=== PATIENT | male | born 1940 | race Caucasian/White ===

== ENCOUNTER 2017-07-06 23:08 | Inpatient (IN) | payer OTHER, MEDICARE ==
[~2017-07-06] VITALS: Ht 190.5 cm; Wt 71.9 kg
[~2017-07-06 23:08] MED LIST: DIOV40TA PO; DIPH50TA PO; SULF1TAB47 PO
[2017-07-06 23:09] VITALS: BP 91/55; PULSE 64; RESP 16; TEMP 97.6; O2SAT 97
[2017-07-06 23:15] VITALS: O2SAT 97
[2017-07-06] MEDS ORDERED: SODIUM CHLOR 0.9% 1000 ML INJ 1,000 ML IV ONE (23:15)
--- NOTE | 2017-07-06 23:17 | PD ---
HPI Chief Complaint: General Weakness Time Seen by Provider: 23:11 Travel History International Travel<30 days: No Contact w/Intl Traveler<30days: No Traveled to known affect area: No History of Present Illness HPI 77-year-old male complains of generalized malaise and weakness. Patient started having coughing congestion about 5 days ago. Patient was given cefuroxime 500 mg by his physician. Patient states that he started having diarrhea prior to taking the antibiotic. Patient states that he had persistent diarrhea subsequently. Patient took [id number] Imodium with some relief of the diarrhea. Patient states that he has poor appetite for the past 5 days. Patient denies any headache. Patient denies any chest pain or shortness of breath. Patient denies abdominal pain. Patient denies any blood or mucus in the stool. Patient has history hypertension and on medication for that. Patient denies history diabetes or hyperlipidemia. Patient is a nonsmoker. Patient denies history of asthma or COPD. EMS was called this evening. Patient was found to be hypotensive. Blood pressure was found to be 60/40. Patient was given a normal saline solution 1.5 L on with the ED. Patient's blood pressure in the 90s upon arrival. PFSH Past Medical History Diminished Hearing: No Hypertension: Yes Social History Alcohol Use: No Tobacco Use: Yes (1 PPD) Substance Use: No Allergies-Medications (Allergen,Severity, Reaction): Coded Allergies: No Known Allergies (Verified Allergy, Unknown, 07/07/17) Reported Meds & Prescriptions Reported Meds & Active Scripts Active Reported Atorvastatin (Atorvastatin Calcium) 20 Mg Tab 20 Mg PO HS Carvedilol 12.5 Mg Tab 12.5 Mg PO BID Lisinopril 20 Mg Tab 20 Mg PO DAILY Cefuroxime (Cefuroxime Axetil) 500 Mg Tab 500 Mg PO BID Review of Systems General / Constitutional: No: Fever Eyes: No: Visual changes HENT: No: Headaches Cardiovascular: No: Chest Pain or Discomfort Respiratory: No: Shortness of Breath Gastrointestinal: Positive: Diarrhea, No: Abdominal Pain Genitourinary: No: Dysuria Musculoskeletal: No: Pain Skin: No Rash Neurologic: No: Weakness Psychiatric: No: Depression Endocrine: No: Polydipsia Hematologic/Lymphatic: No: Easy Bruising Physical Exam Narrative GENERAL: Well-nourished, well-developed patient. SKIN: Focused skin assessment warm/dry. HEAD: Normocephalic. EYES: No scleral icterus. No injection or drainage. NECK: Supple, trachea midline. No JVD or lymphadenopathy. CARDIOVASCULAR: Regular rate and rhythm without murmurs, gallops, or rubs. RESPIRATORY: Breath sounds equal bilaterally. No accessory muscle use. GASTROINTESTINAL: Abdomen soft, non-tender, nondistended. MUSCULOSKELETAL: No cyanosis, or edema. BACK: Nontender without obvious deformity. No CVA tenderness. Neurologic exam normal. Data Data Last Documented VS Vital Signs Date Time Temp Pulse Resp B/P (MAP) Pulse Ox O2 Delivery O2 Flow Rate FiO2 07/07/17 00:45 70 16 87/53 (64) 94 Room Air 07/06/17 23:09 97.6 Orders Orders Lactic Acid (07/06/17 23:11) Electrocardiogram (07/06/17 23:11) Complete Blood Count With Diff (07/06/17 23:11) Comprehensive Metabolic Panel (07/06/17 23:11) Creatine Kinase (Cpk) (07/06/17 23:11) Troponin I (07/06/17 23:11) B-Type Natriuretic Peptide (07/06/17 23:11) Prothrombin Time / Inr (Pt) (07/06/17 23:11) Act Partial Throm Time (Ptt) (07/06/17 23:11) Blood Culture (07/06/17 23:11) Urinalysis - C+S If Indicated (07/06/17 23:11) Magnesium (Mg) (07/06/17 23:11) Thyroid Stimulating Hormone (07/06/17 23:11) Phosphorus (Po4) (07/06/17 23:11) Enteric Path (Stool) (07/06/17 23:11) C Diff Toxin Pcr (07/06/17 23:11) Influenzae A/B Antigen (07/06/17 23:11) Chest, Single Ap (07/06/17 23:11) Iv Access Insert/Monitor (07/06/17 23:11) Ecg Monitoring (07/06/17 23:11) Oximetry (07/06/17 23:11) Sodium Chlor 0.9% 1000 Ml Inj (Ns 1000 M (07/06/17 23:15) Sodium Chlor 0.9% 1000 Ml Inj (Ns 1000 M (07/07/17 00:00) Norepinephrine-Dextrose Drip (Levophed-D (07/07/17 00:45) Terbutaline Inj (Brethine Inj) (07/07/17 00:45) Lactic Acid Sepsis Protocol (07/07/17 00:33) Vancomycin Inj (Vancomycin Inj) (07/07/17 01:15) Piperacil-Tazo 2.25 Gm Premix (Zosyn 2.2 (07/07/17 01:15) Labs Laboratory Tests Test 07/06/17 23:18 07/06/17 23:29 White Blood Count 12.2 TH/MM3 Red Blood Count 4.64 MIL/MM3 Hemoglobin 14.1 GM/DL Hematocrit 43.0 % Mean Corpuscular Volume 92.7 FL Mean Corpuscular Hemoglobin 30.4 PG Mean Corpuscular Hemoglobin Concent 32.8 % Red Cell Distribution Width 13.1 % Platelet Count 225 TH/MM3 Mean Platelet Volume 7.6 FL Neutrophils (%) (Auto) 85.1 % Lymphocytes (%) (Auto) 6.8 % Monocytes (%) (Auto) 7.9 % Eosinophils (%) (Auto) 0.0 % Basophils (%) (Auto) 0.2 % Neutrophils # (Auto) 10.4 TH/MM3 Lymphocytes # (Auto) 0.8 TH/MM3 Monocytes # (Auto) 1.0 TH/MM3 Eosinophils # (Auto) 0.0 TH/MM3 Basophils # (Auto) 0.0 TH/MM3 CBC Comment DIFF FINAL Differential Comment Prothrombin Time 12.0 SEC Prothromb Time International Ratio 1.2 RATIO Activated Partial Thromboplast Time 32.2 SEC Blood Urea Nitrogen 41 MG/DL Creatinine 4.31 MG/DL Random Glucose 106 MG/DL Total Protein 6.1 GM/DL Albumin 2.4 GM/DL Calcium Level 7.8 MG/DL Phosphorus Level 4.6 MG/DL Magnesium Level 2.1 MG/DL Alkaline Phosphatase 62 U/L Aspartate Amino Transf (AST/SGOT) 19 U/L Alanine Aminotransferase (ALT/SGPT) 18 U/L Total Bilirubin 0.3 MG/DL Sodium Level 138 MEQ/L Potassium Level 4.4 MEQ/L Chloride Level 106 MEQ/L Carbon Dioxide Level 23.4 MEQ/L Anion Gap 9 MEQ/L Estimat Glomerular Filtration Rate 13 ML/MIN Lactic Acid Level 1.4 mmol/L Total Creatine Kinase 106 U/L Troponin I LESS THAN 0.02 NG/ML B-Type Natriuretic Peptide 24 PG/ML Thyroid Stimulating Hormone 3rd Gen 1.470 uIU/ML Stool C. difficile Toxin (PCR) POSITIVE Stl C. difficile Toxin Epiderm 027 PRESUMPTIVE NEGATIVE MDM Medical Decision Making Medical Screen Exam Complete: Yes Emergency Medical Condition: Yes Interpretation(s) Last Impressions Chest X-Ray 07/06/17 2311 Signed Impressions: Service Date/Time: Thursday, July 06, 2017 23:25 - CONCLUSION: No acute cardiopulmonary abnormality is identified. There is mild atelectasis at the left lung base. Junaid Davis MD 1:14 AM. CBC WBC 12.2. 85 neutrophil. BUN 41. Creatinine 4.31. GFR 13. Lactic acid 1.4. Cardiac enzymes are normal. C. difficile PCR positive. Differential Diagnosis Differential diagnosis including gastroenteritis, dehydration, electrolyte imbalance, colitis, sepsis. Narrative Course 77-year-old male with poor appetite, diarrhea, hypotension. Patient was given 1.5 L normal saline solution by EMS. Normal saline solution 2 L IV bolus. Levophed IV started to keep MAP above 65. Vancomycin 1 g IV given. Zosyn 2.275 g IV given. Critical Care Narrative Aggregate critical care time was 60 minutes. Time to perform other separately billable procedures was not included in the critical care time. My time did not include minutes spent treating any other patients simultaneously or on activities that did not directly contribute to the patient's treatment. The services I provided to this patient were to treat and/or prevent clinically significant deterioration that could result in: I provided critical care services requiring my management, as noted below: Chart data review, documentation time, medication orders and management, vital sign assessments/reviewing monitor data, ordering and reviewing lab tests, ordering and interpreting/reviewing x-rays and diagnostic studies, care of the patient and discussion of the patient with the admitting physicians. Procedures Procedure Narrative CENTRAL VENOUS LINE: The site was prepped with Betadine and sterilely draped. It was infiltrated with 1% lidocaine plain. The deep vein was cannulated using normal Seldinger technique. A triple lumen central line was placed in the right femoral site and secured with simple interrupted suture. The site was sterilely dressed. The patient tolerated the procedure well. Diagnosis Primary Impression: Septic shock Additional Impressions: C. difficile colitis Acute kidney injury Admitting Information Admitting Physician Requests: Admit Tereso Otero MD Jul 06, 2017 23:17
[2017-07-06] MEDS ORDERED: CEFU1TAB20 PO (23:38)
[2017-07-06] MEDS ORDERED: LISI-515 PO (23:38)
[2017-07-06] MEDS ORDERED: ATOR20TA15 PO (23:38)
[2017-07-06] MEDS ORDERED: CARV12.52 PO (23:38)
[2017-07-06 23:40] VITALS: BP 82/48; PULSE 60; RESP 16; O2SAT 95
--- NOTE | 2017-07-06 23:41 | RADRPT ---
EXAM DATE/TIME: 07/06/2017 23:25 [facility] COMPARISON: No previous studies available for comparison. INDICATIONS : Shortness of breath. MEDICAL HISTORY : None. SURGICAL HISTORY : None. ENCOUNTER: Initial ACUITY: 1 day PAIN SCORE: 0/10 LOCATION: Bilateral chest FINDINGS: Portable AP view of the chest demonstrates a normal-sized cardiac silhouette. EKG lines overlie the p atient. Lungs are hyperexpanded. There is atelectasis at the left lung base. No pleural effusion, air space consolidation, or pneumothorax is visualized. The bones and soft tissues demonstrate no acute f inding. CONCLUSION: No acute cardiopulmonary abnormality is identified. There is mild atelectasis at the left lung base. Junaid Davis MD on July 06, 2017 at 23:39 Board Certified Radiologist. This report was verified electronically.
[2017-07-06 23:43] LABS: AUTOMATED NEUTROPHIL # 10.4 TH/MM3 (1.8-7.7); BASOPHIL % 0.2 % (0.0-2.0); HEMOGLOBIN 14.1 GM/DL (13.0-17.0); LYMPH % 6.8 % (9.0-44.0); LYMPHOCYTE # 0.8 TH/MM3 (1.0-4.8); MEAN CELL VOLUME 92.7 FL (80.0-100.0); MEAN CORPUSCULAR HEMOGLOBIN 30.4 PG (27.0-34.0); MEAN CORPUSCULAR HGB CONC 32.8 % (32.0-36.0); MEAN PLATELET VOLUME 7.6 FL (7.0-11.0); MONO % 7.9 % (0.0-8.0); NEUT % 85.1 % (16.0-70.0); PLATELET COUNT 225 TH/MM3 (150-450); RED BLOOD COUNT 4.64 MIL/MM3 (4.50-5.90); RED CELL DISTRIBUTION WIDTH 13.1 % (11.6-17.2); WHITE BLOOD COUNT 12.2 TH/MM3 (4.0-11.0)
[2017-07-06 23:56] LABS: INTERNATIONAL NORMALIZED RATIO 1.2 RATIO
[2017-07-06 23:58] VITALS: BP 71/44; PULSE 85; RESP 16; O2SAT 95
[2017-07-07] VITALS (18 sets, daily range): BP systolic 87–136; BP diastolic 50–65; PULSE 63–86; RESP 16–28; TEMP 97.9–100.7; O2SAT 93–99
[2017-07-07 00:10] LABS: ALBUMIN 2.4 GM/DL (3.4-5.0); AST (GOT) 19 U/L (15-37); BICARBONATE 23.4 MEQ/L (21.0-32.0); BLOOD UREA NITROGEN 41 MG/DL (7-18); CALCIUM 7.8 MG/DL (8.5-10.1); CHLORIDE 106 MEQ/L (98-107); CREATININE 4.31 MG/DL (0.60-1.30); GLOMERULAR FILTRATION RATE 13 ML/MIN (>89); GLUCOSE,RANDOM 106 MG/DL (74-106); MAGNESIUM 2.1 MG/DL (1.5-2.5); SODIUM (NA) 138 MEQ/L (136-145)
[2017-07-07 00:11] LABS: ALT (GPT) 18 U/L (12-78); PHOSPHORUS 4.6 MG/DL (2.5-4.9)
[2017-07-07 00:20] LABS: ALKALINE PHOSPHATASE 62 U/L (45-117); TOTAL BILIRUBIN ADULT 0.3 MG/DL (0.2-1.0); TOTAL PROTEIN 6.1 GM/DL (6.4-8.2); TROPONIN I LESS THAN 0.02 NG/ML (0.02-0.05)
[2017-07-07] MEDS ORDERED: NOREPINEPHRINE-DEXTROSE DRIP 250 ML IV PRN (00:45)
[2017-07-07] MEDS ORDERED: TERBUTALINE INJ 1 MG/ML AMP SQ PRN (00:45)
[2017-07-07] MEDS ORDERED: VANCOMYCIN INJ 1,000 MG in SODIUM CHLOR 0.9% 250 ML INJ 250 ML IV ONE (01:15)
[2017-07-07] MEDS ORDERED: PIPERACIL-TAZO 2.25 GM PREMIX 50 ML IV ONE (01:15)
[2017-07-07] MEDS ORDERED: SODIUM CHLOR 0.9% 1000 ML INJ 1,000 ML IV ONE ×3 (01:44)
[2017-07-07] MEDS ORDERED: SODIUM CHLOR 0.9% 1000 ML INJ 100 ML IV ONE (01:44)
[2017-07-07] MEDS ORDERED: MAGNESIUM HYDROXIDE SUSP 30 ML CUP PO PRN (01:45)
[2017-07-07] MEDS ORDERED: RESP: ALBUTEROL 2.5 MG/IPRATROPIUM 0.5 MG NEB (PRN) INH (01:45)
[2017-07-07] MEDS ORDERED: PIPERACIL-TAZO 4.5 GM PREMIX 100 ML IV SCH (01:45)
[2017-07-07] MEDS ORDERED: ACETAMINOPHEN 325 MG TAB PO PRN (01:45)
[2017-07-07] MEDS ORDERED: Vancomycin Consult Pharmacy 1 EA OTHER SCH (01:45)
[2017-07-07] MEDS ORDERED: CHLORHEXIDINE GLUCONATE 2 % 1 PACK (2 CLOTHS) TOP PRN (01:45)
[2017-07-07] MEDS ORDERED: BISACODYL 10 MG SUPP RECTAL PRN (01:45)
[2017-07-07] MEDS ORDERED: ONDANSETRON HCL 4 MG/2 ML VIAL IV PUSH PRN (01:45)
[2017-07-07] MEDS ORDERED: TEMAZEPAM 15 MG CAP PO PRN (01:45)
[2017-07-07] MEDS ORDERED: LACTULOSE SYRUP 20 GM/30 ML CUP PO PRN (01:45)
[2017-07-07] MEDS ORDERED: SODIUM CHLORIDE 0.9% FLUSH 10 ML FLUSH IV FLUSH PRN ×2 (01:45)
[2017-07-07] MEDS ORDERED: MISCELLANEOUS NURSING INFORMATION XX SCH (01:45)
[2017-07-07] MEDS ORDERED: SENNOSIDES 8.6 MG TAB PO PRN (01:45)
[2017-07-07] MEDS: VANCOMYCIN 500 MG VIAL (FOR ORAL USE ONLY) PO SCH ×5 (02:07→20:42)
[2017-07-07] MEDS: SODIUM CHLOR 0.9% 1000 ML INJ 1,000 ML IV SCH ×2 (03:26→14:03)
[2017-07-07] MEDS: HEPARIN SODIUM - SQ 10,000 UNITS/ML VIAL SQ SCH ×3 (04:00→20:41)
[2017-07-07] MEDS: CHLORHEXIDINE GLUCONATE 2 % 1 PACK (2 CLOTHS) TOP SCH (04:00)
--- NOTE | 2017-07-07 05:43 | HHI.HP ---
HPI Service Critical Care Medicine Primary Care Physician Becky Milian M.D. Admission Diagnosis septic shock. C. difficile colitis. Acute kidney injury. Diagnosis: Travel History International Travel<30 Days: No Contact w/Intl Traveler <30 Da: No Traveled to Known Affected Are: No History of Present Illness 77-year-old male presents complaining of generalized malaise and weakness. Patient started having coughing congestion about 5 days ago. Patient was given cefuroxime 500 mg by his physician. Patient states that he started having diarrhea prior to taking the antibiotic and has had persistent diarrhea subsequently. Patient took [id number] Imodium with some relief of the diarrhea but he remained having poor appetite for the past 5 days. He denies abdominal pain. EMS was called this evening and they found patient hypotensive with a blood pressure 60/40. Patient was given a normal saline solution 1.5 L on with the ED. his blood pressure in the emergency department was improved however declined again, requiring centerline placement by ED attending and an initiation off vasopressors treatment. Review of Systems Constitutional: COMPLAINS OF: Diaphoretic episodes, Fatigue, Fever, Change in appetite, DENIES: Weight gain, Weight loss, Chills, Dizziness, Night Sweats Endocrine: DENIES: Heat/cold intolerance, Polydipsia, Polyuria, Polyphagia Eyes: DENIES: Blurred vision, Diplopia, Eye inflammation, Eye pain, Vision loss , Photosensitivity, Double Vision Ears, nose, mouth, throat: DENIES: Tinnitus, Hearing loss, Vertigo, Nasal discharge, Oral lesions, Throat pain, Hoarseness, Ear Pain, Running Nose, Epistaxis, Sinus Pain, Toothache, Odynophagia Respiratory: DENIES: Apneas, Cough, Snoring, Wheezing, Hemoptysis, Sputum production, Shortness of breath Cardiovascular: DENIES: Chest pain, Palpitations, Syncope, Dyspnea on Exertion , PND, Lower Extremity Edema, Orthopnea, Claudication Gastrointestinal: COMPLAINS OF: Diarrhea, DENIES: Abdominal pain, Black stools , Bloody stools, Constipation, Nausea, Vomiting, Difficulty Swallowing, Anorexia Musculoskeletal: DENIES: Joint pain, Muscle aches, Stiffness, Joint Swelling, Back pain, Neck pain Integumentary: DENIES: Abnormal pigmentation, Nail changes, Pruritus, Rash Hematologic/lymphatic: DENIES: Bruising, Lymphadenopathy Immunologic/allergic: DENIES: Eczema, Urticaria Neurologic: DENIES: Abnormal gait, Headache, Localized weakness, Paresthesias, Seizures, Speech Problems, Tremor, Poor Balance Psychiatric: DENIES: Anxiety, Confusion, Mood changes, Depression, Hallucinations, Agitation, Suicidal Ideation, Homicidal Ideation, Delusions Past Family Social History Allergies: Coded Allergies: No Known Allergies (Verified Allergy, Unknown, 07/07/17) Past Medical History Hypertension Past Surgical History No significant Reported Medications Reported Meds & Active Scripts Active Reported Atorvastatin (Atorvastatin Calcium) 20 Mg Tab 20 Mg PO HS Carvedilol 12.5 Mg Tab 12.5 Mg PO BID Lisinopril 20 Mg Tab 20 Mg PO DAILY Cefuroxime (Cefuroxime Axetil) 500 Mg Tab 500 Mg PO BID Active Ordered Medications Current Medications Medications (Trade) Dose Ordered Sig/Zachary Route PRN Reason Start Time Stop Time Status Last Admin Dose Admin Norepinephrine Bitartrate 250 ml @ 7.5 mls/hr TITRATE PRN IV Blood pressure management 07/07/17 00:45 Terbutaline Sulfate (Brethine Inj) 1 mg UNSCH PRN SQ For Extravasation 07/07/17 00:45 Vancomycin HCl (VANCOMYCIN for oral use only) 125 mg QID PO 07/07/17 01:45 07/07/17 02:07 Atorvastatin Calcium (Lipitor) 20 mg HS PO 07/07/17 21:00 Sodium Chloride 1,000 ml @ 84 mls/hr [id number] IV 07/07/17 01:44 07/07/17 03:26 Acetaminophen (Tylenol) 650 mg Q6H PRN PO PAIN 1-5 AND/OR FEVER >101F 07/07/17 01:45 Famotidine (Pepcid Inj) 20 mg Q12HR IV PUSH 07/07/17 09:00 Ondansetron HCl (Zofran Inj) 4 mg Q6H PRN IV PUSH NAUSEA OR VOMITING 07/07/17 01:45 Temazepam (Restoril) 15 mg HS PRN PO INSOMNIA 07/07/17 01:45 Albuterol/ Ipratropium (Duoneb Neb) 1 ampule Q2HR NEB PRN INH WHEEZING 07/07/17 01:45 Heparin Sodium (Porcine) (Heparin Inj) 5,000 units Q8H SQ 07/07/17 04:00 Miscellaneous Information 1 [id number] XX 07/07/17 01:45 Chlorhexidine Gluconate (Chlorhexidine 2% Cloth) 3 pack Taper DAILY@04 TOP 07/07/17 04:00 07/03/18 03:59 Chlorhexidine Gluconate (Chlorhexidine 2% Cloth) 3 pack UNSCH PRN TOP HYGIENIC CARE 07/07/17 01:45 Senna/Docusate Sodium (Bhakti-Colace) 1 tab BID PO 07/07/17 09:00 Magnesium Hydroxide (Milk Of Magnesia Liq) 30 ml Q12H PRN PO Mild constipation 07/07/17 01:45 Sennosides (Senokot) 17.2 mg Q12H PRN PO Moderate constipation 07/07/17 01:45 Bisacodyl (Dulcolax Supp) 10 mg DAILY PRN RECTAL SEVERE CONSITIPATION 07/07/17 01:45 Lactulose (Lactulose Liq) 30 ml DAILY PRN PO SEVERE CONSITIPATION 07/07/17 01:45 Sodium Chloride (NS Flush) 2 ml UNSCH PRN IV FLUSH FLUSH AFTER USING IV ACCESS 07/07/17 01:45 Sodium Chloride (NS Flush) 2 ml BID IV FLUSH 07/07/17 09:00 Pharmacy Profile Note 0 ml @ 0 mls/hr UNSCH OTHER 07/07/17 01:45 Piperacillin Sod/ Tazobactam Sod 50 ml @ 100 mls/hr Q6H IV 07/07/17 08:00 Influenza Virus Vaccine (Flu (Quadrivalent) Vaccine Inj) 0.5 ml ONCE ONCE IM 07/08/17 09:00 07/08/17 09:01 Family History No family history significant of early coronary artery disease or malignancy Social History Smokes one pack per day Denies history of illicit drug or alcohol abuse Physical Exam Vital Signs Vital Signs Date Time Temp Pulse Resp B/P (MAP) Pulse Ox O2 Delivery O2 Flow Rate FiO2 07/07/17 04:49 07/07/17 04:24 63 16 112/59 (76) 97 Nasal Cannula 2.00 07/07/17 03:06 79 16 98/56 (70) 98 Nasal Cannula 2.00 07/07/17 02:51 73 16 93/52 (66) 97 Nasal Cannula 2.00 07/07/17 02:12 76 16 100/55 (70) 94 Room Air 07/07/17 01:19 65 16 88/52 (64) 94 Room Air 07/07/17 00:45 70 16 87/53 (64) 94 Room Air 07/07/17 00:15 72 16 100/54 (69) 99 Room Air 07/06/17 23:58 85 16 71/44 (53) 95 Room Air 07/06/17 23:40 60 16 82/48 (59) 95 Room Air 07/06/17 23:15 97 Room Air 07/06/17 23:12 16 07/06/17 23:09 97.6 64 16 91/55 (67) 97 Physical Exam GENERAL: Well-nourished, well-developed patient. SKIN: Warm and dry. HEAD: Normocephalic. EYES: No scleral icterus. No injection or drainage. NECK: Supple, trachea midline. No JVD or lymphadenopathy. CARDIOVASCULAR: Regular rate and rhythm without murmurs, gallops, or rubs. RESPIRATORY: Breath sounds equal bilaterally. No accessory muscle use. GASTROINTESTINAL: Abdomen soft, non-tender, nondistended. MUSCULOSKELETAL: No cyanosis, or edema. BACK: Nontender without obvious deformity. NEURO EXAM: GCS: 15 Mental Status: The patient is alert and oriented to person, place, and time with normal speech. Laboratory Laboratory Tests Test 07/06/17 23:18 07/06/17 23:29 07/07/17 02:18 07/07/17 04:50 White Blood Count 12.2 Red Blood Count 4.64 Hemoglobin 14.1 Hematocrit 43.0 Mean Corpuscular Volume 92.7 Mean Corpuscular Hemoglobin 30.4 Mean Corpuscular Hemoglobin Concent 32.8 Red Cell Distribution Width 13.1 Platelet Count 225 Mean Platelet Volume 7.6 Neutrophils (%) (Auto) 85.1 Lymphocytes (%) (Auto) 6.8 Monocytes (%) (Auto) 7.9 Eosinophils (%) (Auto) 0.0 Basophils (%) (Auto) 0.2 Neutrophils # (Auto) 10.4 Lymphocytes # (Auto) 0.8 Monocytes # (Auto) 1.0 Eosinophils # (Auto) 0.0 Basophils # (Auto) 0.0 CBC Comment DIFF FINAL Differential Comment Prothrombin Time 12.0 Prothromb Time International Ratio 1.2 Activated Partial Thromboplast Time 32.2 Blood Urea Nitrogen 41 Creatinine 4.31 Random Glucose 106 Total Protein 6.1 Albumin 2.4 Calcium Level 7.8 Phosphorus Level 4.6 Magnesium Level 2.1 Alkaline Phosphatase 62 Aspartate Amino Transf (AST/SGOT) 19 Alanine Aminotransferase (ALT/SGPT) 18 Total Bilirubin 0.3 Sodium Level 138 Potassium Level 4.4 Chloride Level 106 Carbon Dioxide Level 23.4 Anion Gap 9 Estimat Glomerular Filtration Rate 13 Lactic Acid Level 1.4 1.0 Total Creatine Kinase 106 Troponin I LESS THAN 0.02 B-Type Natriuretic Peptide 24 Thyroid Stimulating Hormone 3rd Gen 1.470 Stool C. difficile Toxin (PCR) POSITIVE Stl C. difficile Toxin Epiderm 027 PRESUMPTIVE NEGATIVE Test 07/07/17 05:12 Lactic Acid Level 1.1 Date/Time Source Procedure Growth Status 07/06/17 23:18 Blood Peripheral Aerobic Blood Culture Pending Received 07/06/17 23:18 Blood Peripheral Anaerobic Blood Culture Pending Received 07/06/17 23:29 Stool Stool Pending Received 07/06/17 23:32 Nasal Washing Influenza Types A,B Antigen (JOSEPH) - Final NEGATIVE FOR FLU A AND B ANTIGEN.... Complete Result Diagram: 07/06/178 07/06/178 Imaging Last 24 hours Impressions Chest X-Ray 07/06/171 Signed Impressions: Service Date/Time: Thursday, July 06, 2017 23:25 - CONCLUSION: No acute cardiopulmonary abnormality is identified. There is mild atelectasis at the left lung base. Junaid Davis MD Septic Shock Reassessment Septic shock perfusion: reassessment completed Caprini VTE Risk Assessment Caprini VTE Risk Assessment: Mod/High Risk (score >= 2) Caprini Risk Assessment Model Point Value = 1 Point Value = 2 Point Value = 3 Point Value = 5 Age 41-60 Minor surgery BMI > 25 kg/m2 Swollen legs Varicose veins or History of unexplained or recurrent spontaneous Oral contraceptives or hormone replacement Sepsis (< 1 month) Serious lung disease, including pneumonia (< 1 month) Abnormal pulmonary function Acute myocardial infarction Congestive heart failure (< 1 month) History of inflammatory bowel disease Medical patient at bed rest Age 61-74 Arthroscopic surgery Major open surgery (> 45 min) Laparoscopic surgery (> 45 min) Malignancy Confined to bed (> 72 hours) Immobilizing plaster cast Central venous access Age >= 75 History of VTE Family history of VTE Factor V Leiden Prothrombin [id number] Lupus anticoagulant Anticardiolipin antibodies Elevated serum homocysteine Heparin-induced thrombocytopenia Other congenital or acquired thrombophilia Stroke (< 1 month) Elective arthroplasty Hip, pelvis, or leg fracture Acute spinal cord injury (< 1 month) Prophylaxis Regimen Total Risk Factor Score Risk Level Prophylaxis Regimen 0-1 Low Early ambulation 2 Moderate Order ONE of the following: *Sequential Compression Device (SCD) *Heparin 5000 units SQ BID 3-4 Higher Order ONE of the following medications: *Heparin 5000 units SQ TID *Enoxaparin/Lovenox 40 mg SQ daily (WT < 150 kg, CrCl > 30 mL/min) *Enoxaparin/Lovenox 30 mg SQ daily (WT < 150 kg, CrCl > 10-29 mL/min) *Enoxaparin/Lovenox 30 mg SQ BID (WT < 150 kg, CrCl > 30 mL/min) AND/OR *Sequential Compression Device (SCD) 5 or more Highest Order ONE of the following medications: *Heparin 5000 units SQ TID (Preferred with Epidurals) *Enoxaparin/Lovenox 40 mg SQ daily (WT < 150 kg, CrCl > 30 mL/min) *Enoxaparin/Lovenox 30 mg SQ daily (WT < 150 kg, CrCl > 10-29 mL/min) *Enoxaparin/Lovenox 30 mg SQ BID (WT < 150 kg, CrCl > 30 mL/min) AND *Sequential Compression Device (SCD) Assessment and Plan Assessment and Plan Severe sepsis - Broad-spectrum antibiotic - IV fluid hydration - Pancultures - Follow-up and de-escalate the antibiotics per sensitivity - Infectious disease consultation Clostridium difficile colitis - Vancomycin by mouth Hypotention - Aggressive IV fluids resuscitation - Per sepsis protocol - Levophed when necessary to keep MAP above 65 Tobacco use disorder - Cessation counseling provided - Continue patch if needed Acute kidney injury - Severe dehydration - Aggressive IV fluid resuscitation - Monitor I's and O - With a creatinine and electrolytes DVT GI prophylaxis - Teds SCDs - Subcutaneous heparin - Pepcid Critical Care: The total critical care time was 35 minutes. Time to perform other separately billable procedures was not included in the critical care time. Brandyn Dickinson MD Jul 07, 2017 5:43 am
[2017-07-07] MEDS ORDERED: PIPERACIL-TAZO 2.25 GM PREMIX 50 ML IV SCH (08:00)
[2017-07-07] MEDS: SODIUM CHLORIDE 0.9% FLUSH 10 ML FLUSH IV FLUSH SCH ×2 (08:28→20:41)
[2017-07-07] MEDS: DOCUSATE SODIUM 50 MG/SENNA 8.6 MG TAB PO SCH ×2 (08:29→20:42)
[2017-07-07] MEDS ORDERED: FAMOTIDINE 20 MG/2 ML VIAL IV PUSH SCH (09:00)
[2017-07-07] MEDS ORDERED: SODIUM CHLORIDE 0.9% FLUSH 10 ML FLUSH IV FLUSH SCH (09:00)
--- NOTE | 2017-07-07 09:18 | PD.CONS ---
History of Present Illness Service Infectious disease Consult Requested By Dr Bianca Dickinson Reason for Consult Evaluate patient with severe sepsis Primary Care Physician Becky Milian M.D. Diagnoses: History of Present Illness Patient seen and examined. Records reviewed. Patient is a 77-year-old male, presented to the hospital complaining of significant weakness, generalized malaise, and 2 episodes of syncope. His problems started about 2 weeks ago when he developed cough productive of some whitish phlegm. He had some shortness of breath, and he also started having significant diarrhea. Her was no blood, and there was associated abdominal cramping. He is into his illness, he saw his primary care physician, who gave him an antibiotic, and he was told to take Imodium. He was taking Imodium after each bowel movement, and the diarrhea subsequently improved after 5 days of being on Imodium. Intake has been quite poor. He is not been drinking much. He is noted decrease in his urine output. About 2 days prior to admission, he started having diarrhea again, and he had a syncopal episode when he was in the bathroom and had dizziness. Apparently the following day he had another episode of dizziness and passed out again. He was progressively getting worse, and still with significant weakness, and patient was brought into the hospital for further evaluation and treatment. There's been no fever or chills. He has not really noted any worsening of his respiratory symptoms. Patient in the ED had hypotension, and received fluid boluses. His WBC was 12, 000, his creatinine was 4. Patient has been having diarrhea since admission. He has not had any nausea or vomiting. His stool for C. difficile came back positive. Chest x-rays normal. He is maintaining a decent MAP, and he is not on pressors. Infectious disease consultation has been requested to evaluate the patient with severe sepsis. Review of Systems Constitutional: COMPLAINS OF: Dizziness, Change in appetite, DENIES: Fever, Chills, Night Sweats Eyes: DENIES: Eye pain Ears, nose, mouth, throat: DENIES: Nasal discharge, Oral lesions, Throat pain, Ear Pain, Sinus Pain Respiratory: COMPLAINS OF: Cough, Sputum production, Shortness of breath, DENIES: Hemoptysis Cardiovascular: COMPLAINS OF: Syncope, DENIES: Chest pain, Lower Extremity Edema Gastrointestinal: COMPLAINS OF: Diarrhea, DENIES: Abdominal pain, Nausea, Vomiting, Difficulty Swallowing Genitourinary: DENIES: Hematuria Musculoskeletal: DENIES: Joint pain, Joint Swelling Integumentary: DENIES: Rash Neurologic: DENIES: Headache, Localized weakness Psychiatric: DENIES: Hallucinations Past Family Social History Allergies: Coded Allergies: No Known Allergies (Verified Allergy, Unknown, 07/07/17) Past Medical History Hypertension Renal insufficiency - sees Dr Amrit George Hyperlipidemia Asthma as a child Previous kidney stones All his teeth have been removed more than one year ago Previous colonoscopy ?2 years ago ?Some urologic procedure for his kidney stones Past Surgical History None Active Ordered Medications Current Medications Medications (Trade) Dose Ordered Sig/Zachary Route Start Time Stop Time Status Last Admin Norepinephrine Bitartrate 250 ml @ 7.5 mls/hr TITRATE PRN IV 07/07/17 00:45 (Brethine Inj) 1 mg UNSCH PRN SQ 07/07/17 00:45 (VANCOMYCIN for oral use only) 125 mg QID PO 07/07/17 01:45 07/07/17 08:28 (Lipitor) 20 mg HS PO 07/07/17 21:00 Sodium Chloride 1,000 ml @ 84 mls/hr [id number] IV 07/07/17 01:44 07/07/17 03:26 (Tylenol) 650 mg Q6H PRN PO 07/07/17 01:45 (Pepcid Inj) 20 mg Q12HR IV PUSH 07/07/17 09:00 07/07/17 08:28 (Zofran Inj) 4 mg Q6H PRN IV PUSH 07/07/17 01:45 (Restoril) 15 mg HS PRN PO 07/07/17 01:45 (Duoneb Neb) 1 ampule Q2HR NEB PRN INH 07/07/17 01:45 (Heparin Inj) 5,000 units Q8H SQ 07/07/17 04:00 Miscellaneous Information 1 Q361D XX 07/07/17 01:45 07/07/17 01:45 (Chlorhexidine 2% Cloth) 3 pack Taper DAILY@04 TOP 07/07/17 04:00 07/03/18 03:59 07/07/17 04:00 (Chlorhexidine 2% Cloth) 3 pack UNSCH PRN TOP 07/07/17 01:45 (Bhakti-Colace) 1 tab BID PO 07/07/17 09:00 2/7/18 08:29 (Milk Of Magnesia Liq) 30 ml Q12H PRN PO 07/07/17 01:45 (Senokot) 17.2 mg Q12H PRN PO 07/07/17 01:45 (Dulcolax Supp) 10 mg DAILY PRN RECTAL 07/07/17 01:45 (Lactulose Liq) 30 ml DAILY PRN PO 07/07/17 01:45 (NS Flush) 2 ml UNSCH PRN IV FLUSH 07/07/17 01:45 (NS Flush) 2 ml BID IV FLUSH 07/07/17 09:00 07/07/17 08:28 Pharmacy Profile Note 0 ml @ 0 mls/hr UNSCH OTHER 07/07/17 01:45 Piperacillin Sod/ Tazobactam Sod 50 ml @ 100 mls/hr Q6H IV 07/07/17 08:00 (Flu (Quadrivalent) Vaccine Inj) 0.5 ml ONCE ONCE IM 07/08/17 09:00 07/08/17 09:01 Family History Noncontributory Social History Smokes one pack per day Denies history of illicit drug or alcohol abuse Physical Exam Vital Signs Vital Signs Date Time Temp Pulse Resp B/P (MAP) Pulse Ox O2 Delivery O2 Flow Rate FiO2 07/07/17 06:00 75 07/07/17 04:49 07/07/17 04:24 63 16 112/59 (76) 97 Nasal Cannula 2.00 07/07/17 04:00 97.9 76 16 93/50 (64) 94 07/07/17 03:06 79 16 98/56 (70) 98 Nasal Cannula 2.00 07/07/17 02:51 73 16 93/52 (66) 97 Nasal Cannula 2.00 07/07/17 02:12 76 16 100/55 (70) 94 Room Air 07/07/17 01:19 65 16 88/52 (64) 94 Room Air 07/07/17 00:45 70 16 87/53 (64) 94 Room Air 07/07/17 00:15 72 16 100/54 (69) 99 Room Air 07/06/17 23:58 85 16 71/44 (53) 95 Room Air 07/06/17 23:40 60 16 82/48 (59) 95 Room Air 07/06/17 23:15 97 Room Air 07/06/17 23:12 16 07/06/17 23:09 97.6 64 16 91/55 (94) 97 Physical Exam GENERAL: Patient is a well-nourished, well-developed male, awake and alert, not in respiratory distress. SKIN: Cool and dry. No generalized rash, no ecchymoses and no evidence of embolic lesions. HEAD: Atraumatic. Normocephalic. No temporal wasting, or tenderness. EYES: [place] conjunctiva. No petechia or hemorrhage. Pupils equal, round and reactive to light. Extraocular movements full and intact. No scleral icterus. No injection or drainage. EARS, NOSE AND THROAT: Nose without bleeding or purulent nasal discharge. No sinus tenderness. Mucous membranes pink and moist. No oral lesions noted. Wears upper and lower dentures. NECK: Trachea midline. Supple and not tender, no meningeal signs CARDIOVASCULAR: Regular rate and rhythm. No murmurs, rubs or gallops heard RESPIRATORY: Clear to auscultation. Breath sounds equal bilaterally. No rales , wheezing or rhonchi ABDOMEN: Soft, non-tender, nondistended. Bowel sounds present and normoactive. No guarding. No rebound. No organomegaly. EXTREMITIES: No clubbing, cyanosis, or edema. No joint effusion, has good ROM. No calf tenderness. Well perfused and warm. NEUROLOGICAL: Awake and alert. Cranial nerves grossly intact. Motor grossly within normal limits. PSYCHIATRIC: Normal affect, calm and cooperative. LINE: No evidence of infection Laboratory Laboratory Tests Test 07/06/17 23:18 07/06/17 23:29 07/07/17 02:18 07/07/17 04:50 White Blood Count 12.2 Red Blood Count 4.64 Hemoglobin 14.1 Hematocrit 43.0 Mean Corpuscular Volume 92.7 Mean Corpuscular Hemoglobin 30.4 Mean Corpuscular Hemoglobin Concent 32.8 Red Cell Distribution Width 13.1 Platelet Count 225 Mean Platelet Volume 7.6 Neutrophils (%) (Auto) 85.1 Lymphocytes (%) (Auto) 6.8 Monocytes (%) (Auto) 7.9 Eosinophils (%) (Auto) 0.0 Basophils (%) (Auto) 0.2 Neutrophils # (Auto) 10.4 Lymphocytes # (Auto) 0.8 Monocytes # (Auto) 1.0 Eosinophils # (Auto) 0.0 Basophils # (Auto) 0.0 CBC Comment DIFF FINAL Differential Comment Prothrombin Time 12.0 Prothromb Time International Ratio 1.2 Activated Partial Thromboplast Time 32.2 Blood Urea Nitrogen 41 Creatinine 4.31 Random Glucose 106 Total Protein 6.1 Albumin 2.4 Calcium Level 7.8 Phosphorus Level 4.6 Magnesium Level 2.1 Alkaline Phosphatase 62 Aspartate Amino Transf (AST/SGOT) 19 Alanine Aminotransferase (ALT/SGPT) 18 Total Bilirubin 0.3 Sodium Level 138 Potassium Level 4.4 Chloride Level 106 Carbon Dioxide Level 23.4 Anion Gap 9 Estimat Glomerular Filtration Rate 13 Lactic Acid Level 1.4 1.0 Total Creatine Kinase 106 Troponin I LESS THAN 0.02 B-Type Natriuretic Peptide 24 Thyroid Stimulating Hormone 3rd Gen 1.470 Stool C. difficile Toxin (PCR) POSITIVE Stl C. difficile Toxin Epiderm 027 PRESUMPTIVE NEGATIVE Nasal Screen MRSA (PCR) MRSA NOT DETECTED Test 07/07/17 05:12 07/07/17 09:00 Lactic Acid Level 1.1 Date/Time Source Procedure Growth Status 07/06/17 23:18 Blood Peripheral Aerobic Blood Culture Pending Received 07/06/17 23:18 Blood Peripheral Anaerobic Blood Culture Pending Received 07/06/17 23:29 Stool Stool - Preliminary RESULTS PENDING Resulted 07/06/17 23:32 Nasal Washing Influenza Types A,B Antigen (JOSEPH) - Final NEGATIVE FOR FLU A AND B ANTIGEN.... Complete Result Diagram: 07/06/178 07/06/178 Imaging RADIOLOGY STUDIES/FILMS REVIEWED Last Impressions Chest X-Ray 07/06/17 2311 Signed Impressions: Service Date/Time: Thursday, July 06, 2017 23:25 - CONCLUSION: No acute cardiopulmonary abnormality is identified. There is mild atelectasis at the left lung base. Junaid Davis MD Assessment and Plan Assessment and Plan Impression Severe sepsis due to C difficile colitis Shock likely due to hypovolemia/dehydration CKD, ?baseleine creatinine, likley worsened by hypovolemia and shock Prob with COPD, CXR clear no PNA Recommendation Stop other systemic Abx Continue PO Vancomycin Probiotic Fluid resuscitation Follow C/S Monitor progress I will follow along with you Thank you for this consultation Discussed Condition With Explained plan to the patient I will be off Feb 8-11, other ID MD will be covering in my absence Jazmin Ceron MD Jul 07, 2017 09:18
[2017-07-07 09:33] LABS: BICARBONATE 19.4 MEQ/L (21.0-32.0); CALCIUM 7.6 MG/DL (8.5-10.1); CREATININE 3.16 MG/DL (0.60-1.30); PHOSPHORUS 4.5 MG/DL (2.5-4.9)
--- NOTE | 2017-07-07 11:05 | EKG ---
Date Performed: 07/06/2017 Time Performed: 23:12:41 PTAGE: 77 years EKG: SINUS BRADYCARDIA BORDERLINE ECG NO PREVIOUS TRACING DOCTOR: Roney Merida Interpretating Date/Time 07/07/2017 11:00:26
[2017-07-07] MEDS ORDERED: VANCOMYCIN 1 GM/200 ML PREMIX IV ONE (12:00)
[2017-07-07] MEDS ORDERED: ALTEPLASE RECOMBINANT 2 MG VIAL OTHER SCH (12:15)
[2017-07-07] MEDS: LACTOBACILLUS ACIDOPHILUS TAB PO SCH ×2 (12:35→18:46)
[2017-07-07 12:49] LABS: AUTOMATED NEUTROPHIL # 8.7 TH/MM3 (1.8-7.7); BASOPHIL % 0.2 % (0.0-2.0); EOSINOPHIL % 0.1 % (0.0-4.0); HEMATOCRIT 41.3 % (39.0-51.0); HEMOGLOBIN 13.7 GM/DL (13.0-17.0); LYMPH % 9.7 % (9.0-44.0); MEAN CELL VOLUME 93.2 FL (80.0-100.0); MEAN CORPUSCULAR HEMOGLOBIN 30.8 PG (27.0-34.0); MEAN CORPUSCULAR HGB CONC 33.1 % (32.0-36.0); MEAN PLATELET VOLUME 7.7 FL (7.0-11.0); MONO % 6.9 % (0.0-8.0); MONOCYTE # 0.7 TH/MM3 (0-0.9); NEUT % 83.1 % (16.0-70.0); PLATELET COUNT 208 TH/MM3 (150-450); RED BLOOD COUNT 4.43 MIL/MM3 (4.50-5.90); RED CELL DISTRIBUTION WIDTH 13.1 % (11.6-17.2); WHITE BLOOD COUNT 10.5 TH/MM3 (4.0-11.0)
--- NOTE | 2017-07-07 12:58 | RADRPT ---
EXAM DATE/TIME: 07/07/2017 09:01 [place] COMPARISON: No previous studies available for comparison. INDICATIONS : Elevated labs. MEDICAL HISTORY : Hypercholesterolemia. Hypertension. Dyspnea. Cough. Syncope. Sputum production. Appetite changes. E xcessive sweating. Claustrophobia. Diarrhea. SURGICAL HISTORY : None. ENCOUNTER: Initial ACUITY: 1 day PAIN SCORE: 0/10 LOCATION: Bilateral flank MEASUREMENTS: RIGHT KIDNEY: 10.9 x 5.0 x 4.3 cm LEFT KIDNEY: 10.6 x 5.0 x 5.1 cm FINDINGS: RIGHT KIDNEY: Multiple cysts are present. Largest in the mid to lower pole region measures nearly 4 cm. There is no minutes of hydronephrosis or stones. LEFT KIDNEY: Multiple renal cysts are present, largest at 2 cm lesion in the medial lower pole region. No evidence of hydronephrosis or stones. BLADDER: Within normal limits given the degree of distension. CONCLUSION: Bilateral renal cysts. No evidence of hydronephrosis. Junaid Gamble MD on July 07, 2017 at 12:54 Board Certified Radiologist. This report was verified electronically.
[2017-07-07] MEDS: ATORVASTATIN 20 MG TAB PO SCH (20:41)
[2017-07-07] MEDS: FAMOTIDINE 20 MG/2 ML VIAL IV PUSH SCH (20:42)
[2017-07-08] VITALS (14 sets, daily range): BP systolic 113–180; BP diastolic 56–80; PULSE 56–81; RESP 19–24; TEMP 98–99.4; O2SAT 93–96
[2017-07-08] MEDS: SODIUM CHLOR 0.9% 1000 ML INJ 1,000 ML IV SCH ×2 (00:37→12:54)
[2017-07-08] MEDS: CHLORHEXIDINE GLUCONATE 2 % 1 PACK (2 CLOTHS) TOP SCH (04:00)
[2017-07-08 05:35] LABS: BASOPHIL % 0.2 % (0.0-2.0); EOSINOPHIL # 0.1 TH/MM3 (0-0.4); HEMATOCRIT 36.7 % (39.0-51.0); HEMOGLOBIN 12.1 GM/DL (13.0-17.0); LYMPH % 15.7 % (9.0-44.0); LYMPHOCYTE # 1.3 TH/MM3 (1.0-4.8); MEAN CORPUSCULAR HEMOGLOBIN 30.4 PG (27.0-34.0); MEAN CORPUSCULAR HGB CONC 33.1 % (32.0-36.0); MEAN PLATELET VOLUME 7.6 FL (7.0-11.0); MONO % 9.9 % (0.0-8.0); MONOCYTE # 0.8 TH/MM3 (0-0.9); NEUT % 73.2 % (16.0-70.0); PLATELET COUNT 202 TH/MM3 (150-450); RED BLOOD COUNT 3.99 MIL/MM3 (4.50-5.90); WHITE BLOOD COUNT 8.1 TH/MM3 (4.0-11.0)
[2017-07-08 05:44] LABS: BICARBONATE 19.9 MEQ/L (21.0-32.0); CALCIUM 7.4 MG/DL (8.5-10.1); CALCIUM-PROTEIN CORRECTED 8.5 MG/DL (8.5-10.1); CREATININE 1.61 MG/DL (0.60-1.30); MAGNESIUM 1.9 MG/DL (1.5-2.5); PHOSPHORUS 2.6 MG/DL (2.5-4.9); TOTAL BILIRUBIN ADULT 0.2 MG/DL (0.2-1.0); TOTAL PROTEIN 5.2 GM/DL (6.4-8.2)
[2017-07-08] MEDS: HEPARIN SODIUM - SQ 10,000 UNITS/ML VIAL SQ SCH ×3 (05:52→20:00)
--- NOTE | 2017-07-08 07:32 | HHI.CCPN ---
Subjective Remarks/Hospital Course 77-year-old male presents complaining of generalized malaise and weakness. Patient started having coughing congestion about 5 days ago. Patient was given cefuroxime 500 mg by his physician. Patient states that he started having diarrhea prior to taking the antibiotic and has had persistent diarrhea subsequently. Patient took [id number] Imodium with some relief of the diarrhea but he remained having poor appetite for the past 5 days. He denies abdominal pain. EMS was called this evening and they found patient hypotensive with a blood pressure 60/40. Patient was given a normal saline solution 1.5 L on with the ED. his blood pressure in the emergency department was improved however declined again, requiring centerline placement by ED attending and an initiation off vasopressors treatment. 07/08 No events overnight. Awake and alert. Renal function is improving with Cr: 1.61 from 4.31 on arrival. T:100.7 last night. Objective Vital Signs Date Time Temp Pulse Resp B/P (MAP) Pulse Ox O2 Delivery O2 Flow Rate FiO2 07/08/17 06:00 75 07/08/17 04:00 99.0 19 113/56 (75) 94 07/07/17 20:52 Nasal Cannula 2.00 Intake and Output 07/08/17 07/08/17 07/09/17 08:00 16:00 00:00 Intake Total 240 ml Output Total 800 ml Balance -560 ml Result Diagram: 07/08/17 0450 07/08/17 0450 Other Results Laboratory Tests Test 07/07/17 09:00 07/07/17 12:12 07/08/17 04:50 Blood Urea Nitrogen 38 MG/DL 28 MG/DL Creatinine 3.16 MG/DL 1.61 MG/DL Random Glucose 80 MG/DL 72 MG/DL Calcium Level 7.6 MG/DL 7.4 MG/DL Phosphorus Level 4.5 MG/DL 2.6 MG/DL Magnesium Level 2.0 MG/DL 1.9 MG/DL Sodium Level 143 MEQ/L 144 MEQ/L Potassium Level 4.3 MEQ/L 3.9 MEQ/L Chloride Level 115 MEQ/L 117 MEQ/L Carbon Dioxide Level 19.4 MEQ/L 19.9 MEQ/L Anion Gap 9 MEQ/L 7 MEQ/L Estimat Glomerular Filtration Rate 19 ML/MIN 42 ML/MIN White Blood Count 10.5 TH/MM3 8.1 TH/MM3 Red Blood Count 4.43 MIL/MM3 3.99 MIL/MM3 Hemoglobin 13.7 GM/DL 12.1 GM/DL Hematocrit 41.3 % 36.7 % Mean Corpuscular Volume 93.2 FL 92.0 FL Mean Corpuscular Hemoglobin 30.8 PG 30.4 PG Mean Corpuscular Hemoglobin Concent 33.1 % 33.1 % Red Cell Distribution Width 13.1 % 13.0 % Platelet Count 208 TH/MM3 202 TH/MM3 Mean Platelet Volume 7.7 FL 7.6 FL Neutrophils (%) (Auto) 83.1 % 73.2 % Lymphocytes (%) (Auto) 9.7 % 15.7 % Monocytes (%) (Auto) 6.9 % 9.9 % Eosinophils (%) (Auto) 0.1 % 1.0 % Basophils (%) (Auto) 0.2 % 0.2 % Neutrophils # (Auto) 8.7 TH/MM3 6.0 TH/MM3 Lymphocytes # (Auto) 1.0 TH/MM3 1.3 TH/MM3 Monocytes # (Auto) 0.7 TH/MM3 0.8 TH/MM3 Eosinophils # (Auto) 0.0 TH/MM3 0.1 TH/MM3 Basophils # (Auto) 0.0 TH/MM3 0.0 TH/MM3 CBC Comment DIFF FINAL DIFF FINAL Differential Comment Total Protein 5.2 GM/DL Albumin 2.0 GM/DL Alkaline Phosphatase 53 U/L Aspartate Amino Transf (AST/SGOT) 21 U/L Alanine Aminotransferase (ALT/SGPT) 14 U/L Total Bilirubin 0.2 MG/DL Lactic Acid Level 0.9 mmol/L Protein Corrected Calcium 8.5 MG/DL Imaging Last Impressions Renal Ultrasound 07/07/17 0000 Signed Impressions: Service Date/Time: Friday, July 07, 2017 09:01 - CONCLUSION: Bilateral renal cysts. No evidence of hydronephrosis. Junaid Gamble MD Chest X-Ray 07/06/17 2311 Signed Impressions: Service Date/Time: Thursday, July 06, 2017 23:25 - CONCLUSION: No acute cardiopulmonary abnormality is identified. There is mild atelectasis at the left lung base. Junaid Davis MD Objective Remarks GENERAL: Well-nourished, well-developed patient. SKIN: Warm and dry. HEAD: Normocephalic. EYES: No scleral icterus. No injection or drainage. NECK: Supple, trachea midline. No JVD or lymphadenopathy. CARDIOVASCULAR: Regular rate and rhythm without murmurs, gallops, or rubs. RESPIRATORY: Breath sounds equal bilaterally. No accessory muscle use. GASTROINTESTINAL: Abdomen soft, non-tender, nondistended. MUSCULOSKELETAL: No cyanosis, or edema. BACK: Nontender without obvious deformity. NEURO EXAM: GCS: 15 Mental Status: The patient is alert and oriented to person, place, and time with normal speech. A/P Assessment and Plan 1) Resp Insuff 2)C-diff colitis 3)ABRAN..improving 4)Leukocytosis...trending down 5)Tobacco use disorder Plan Neuro: Awake and alert Pulm: Continue with oxygen keep sat >92% CV: Monitor HR and BP keep MAP>65mmHg Lactic acid 0.9 : Monitor renal function, I/O's, electrolytes replacement as needed. Renal function is improving- Cr: 1.61 from 4.31 Decrease NS@50ml/hr GI: On PO diet ID: Continue with abx ( PO Vanco, Lactinex) ID is following Monitor for signs of infections ( Fever, WBC) Heme: Monitor CBC Endo: SSI if needed for glycemic control DVT GI prophylaxis - Teds SCDs - Subcutaneous heparin - Pepcid Lines: Peripheral IV's, d/c Femoral line Will sign off and transfer care to [facility] Level 2 Neal Chavarria MD Jul 08, 2017 07:32
[2017-07-08] MEDS ORDERED: INFLUENZA VIRUS VACCINE (QUADRIVALENT) 0.5 ML SYR IM ONE (09:00)
[2017-07-08] MEDS: DOCUSATE SODIUM 50 MG/SENNA 8.6 MG TAB PO SCH ×2 (09:00→20:01)
[2017-07-08] MEDS: FAMOTIDINE 20 MG/2 ML VIAL IV PUSH SCH ×2 (09:33→20:00)
[2017-07-08] MEDS: SODIUM CHLORIDE 0.9% FLUSH 10 ML FLUSH IV FLUSH SCH ×2 (09:35→20:00)
[2017-07-08] MEDS: LACTOBACILLUS ACIDOPHILUS TAB PO SCH ×3 (09:35→17:04)
[2017-07-08] MEDS: VANCOMYCIN 500 MG VIAL (FOR ORAL USE ONLY) PO SCH (09:35)
--- NOTE | 2017-07-08 09:41 | HHI.IDPN ---
Subjective Subjective Remarks Patient is a 77-year-old male, presented to the hospital complaining of significant weakness, generalized malaise, and 2 episodes of syncope. His problems started about 2 weeks ago when he developed cough productive of some whitish phlegm. He had some shortness of breath, and he also started having significant diarrhea. Her was no blood, and there was associated abdominal cramping. He is into his illness, he saw his primary care physician, who gave him an antibiotic, and he was told to take Imodium. He was taking Imodium after each bowel movement, and the diarrhea subsequently improved after 5 days of being on Imodium. Intake has been quite poor. He is not been drinking much. He is noted decrease in his urine output. About 2 days prior to admission, he started having diarrhea again, and he had a syncopal episode when he was in the bathroom and had dizziness. Apparently the following day he had another episode of dizziness and passed out again. He was progressively getting worse, and still with significant weakness, and patient was brought into the hospital for further evaluation and treatment. There's been no fever or chills. He has not really noted any worsening of his respiratory symptoms. Patient in the ED had hypotension, and received fluid boluses. His WBC was 12, 000, his creatinine was 4. Patient has been having diarrhea since admission. He has not had any nausea or vomiting. His stool for C. difficile came back positive. Chest x-rays normal. He is maintaining a decent MAP, and he is not on pressors. Infectious disease consultation has been requested to evaluate the patient with severe sepsis. Overnight events reviewed. Low grade fever. No rash No BMs this am. Has a femoral line. Not on pressors. Antibiotics Vanco oral Lines Line sites with no e.o infection Past Medical History reviewed Allergies: Coded Allergies: No Known Allergies (Verified Allergy, Unknown, 07/07/17) Objective . Vital Signs Date Time Temp Pulse Resp B/P (MAP) Pulse Ox O2 Delivery O2 Flow Rate FiO2 07/08/17 06:00 75 07/08/17 04:00 76 07/08/17 04:00 99.0 76 19 113/56 (75) 94 07/08/17 02:00 71 07/08/17 00:00 99.4 69 23 113/58 (76) 93 07/08/17 00:00 69 07/07/17 20:52 95 Nasal Cannula 2.00 07/07/17 20:00 83 07/07/17 20:00 100.7 83 25 136/65 (88) 93 07/07/17 18:00 79 07/07/17 16:00 98.3 80 27 95 07/07/17 16:00 80 07/07/17 14:00 79 07/07/17 12:00 98.4 86 28 120/56 (77) 93 07/07/17 12:00 86 07/07/17 10:00 72 . Laboratory Tests Test 07/06/17 23:18 07/07/17 12:12 07/08/17 04:50 White Blood Count 12.2 TH/MM3 10.5 TH/MM3 8.1 TH/MM3 Red Blood Count 4.64 MIL/MM3 4.43 MIL/MM3 3.99 MIL/MM3 Hemoglobin 14.1 GM/DL 13.7 GM/DL 12.1 GM/DL Hematocrit 43.0 % 41.3 % 36.7 % Mean Corpuscular Volume 92.7 FL 93.2 FL 92.0 FL Mean Corpuscular Hemoglobin 30.4 PG 30.8 PG 30.4 PG Mean Corpuscular Hemoglobin Concent 32.8 % 33.1 % 33.1 % Red Cell Distribution Width 13.1 % 13.1 % 13.0 % Platelet Count 225 TH/MM3 208 TH/MM3 202 TH/MM3 Mean Platelet Volume 7.6 FL 7.7 FL 7.6 FL Neutrophils (%) (Auto) 85.1 % 83.1 % 73.2 % Lymphocytes (%) (Auto) 6.8 % 9.7 % 15.7 % Monocytes (%) (Auto) 7.9 % 6.9 % 9.9 % Eosinophils (%) (Auto) 0.0 % 0.1 % 1.0 % Basophils (%) (Auto) 0.2 % 0.2 % 0.2 % Neutrophils # (Auto) 10.4 TH/MM3 8.7 TH/MM3 6.0 TH/MM3 Lymphocytes # (Auto) 0.8 TH/MM3 1.0 TH/MM3 1.3 TH/MM3 Monocytes # (Auto) 1.0 TH/MM3 0.7 TH/MM3 0.8 TH/MM3 Eosinophils # (Auto) 0.0 TH/MM3 0.0 TH/MM3 0.1 TH/MM3 Basophils # (Auto) 0.0 TH/MM3 0.0 TH/MM3 0.0 TH/MM3 CBC Comment DIFF FINAL DIFF FINAL DIFF FINAL Differential Comment Laboratory Tests Test 07/06/17 23:18 07/07/17 02:18 07/07/17 05:12 07/07/17 09:00 Blood Urea Nitrogen 41 MG/DL 38 MG/DL Creatinine 4.31 MG/DL 3.16 MG/DL Random Glucose 106 MG/DL 80 MG/DL Total Protein 6.1 GM/DL Albumin 2.4 GM/DL Calcium Level 7.8 MG/DL 7.6 MG/DL Phosphorus Level 4.6 MG/DL 4.5 MG/DL Magnesium Level 2.1 MG/DL 2.0 MG/DL Alkaline Phosphatase 62 U/L Aspartate Amino Transf (AST/SGOT) 19 U/L Alanine Aminotransferase (ALT/SGPT) 18 U/L Total Bilirubin 0.3 MG/DL Sodium Level 138 MEQ/L 143 MEQ/L Potassium Level 4.4 MEQ/L 4.3 MEQ/L Chloride Level 106 MEQ/L 115 MEQ/L Carbon Dioxide Level 23.4 MEQ/L 19.4 MEQ/L Anion Gap 9 MEQ/L 9 MEQ/L Estimat Glomerular Filtration Rate 13 ML/MIN 19 ML/MIN Lactic Acid Level 1.4 mmol/L 1.0 mmol/L 1.1 mmol/L Total Creatine Kinase 106 U/L Troponin I LESS THAN 0.02 NG/ML B-Type Natriuretic Peptide 24 PG/ML Thyroid Stimulating Hormone 3rd Gen 1.470 uIU/ML Test 07/08/17 04:50 Blood Urea Nitrogen 28 MG/DL Creatinine 1.61 MG/DL Random Glucose 72 MG/DL Total Protein 5.2 GM/DL Albumin 2.0 GM/DL Calcium Level 7.4 MG/DL Phosphorus Level 2.6 MG/DL Magnesium Level 1.9 MG/DL Alkaline Phosphatase 53 U/L Aspartate Amino Transf (AST/SGOT) 21 U/L Alanine Aminotransferase (ALT/SGPT) 14 U/L Total Bilirubin 0.2 MG/DL Sodium Level 144 MEQ/L Potassium Level 3.9 MEQ/L Chloride Level 117 MEQ/L Carbon Dioxide Level 19.9 MEQ/L Anion Gap 7 MEQ/L Estimat Glomerular Filtration Rate 42 ML/MIN Lactic Acid Level 0.9 mmol/L Protein Corrected Calcium 8.5 MG/DL Microbiology Date/Time Source Procedure Growth Status 07/06/17 23:18 Blood Peripheral Aerobic Blood Culture Pending Received 07/06/17 23:18 Blood Peripheral Anaerobic Blood Culture Pending Received 07/06/17 23:13 Blood Peripheral Aerobic Blood Culture Pending Received 07/06/17 23:13 Blood Peripheral Anaerobic Blood Culture Pending Received 07/06/17 23:29 Stool Stool - Preliminary RESULTS PENDING Resulted 07/06/17 23:32 Nasal Washing Influenza Types A,B Antigen (JOSEPH) - Final NEGATIVE FOR FLU A AND B ANTIGEN.... Complete Imaging Last Impressions Renal Ultrasound 07/07/17 0000 Signed Impressions: Service Date/Time: Friday, July 07, 2017 09:01 - CONCLUSION: Bilateral renal cysts. No evidence of hydronephrosis. Junaid Gamble MD Chest X-Ray 07/06/17 2311 Signed Impressions: Service Date/Time: Thursday, July 06, 2017 23:25 - CONCLUSION: No acute cardiopulmonary abnormality is identified. There is mild atelectasis at the left lung base. Junaid Davis MD Physical Exam GENERAL: Patient is a well-nourished, well-developed male, awake and alert, not in respiratory distress. SKIN: Cool and dry. No generalized rash, no ecchymoses and no evidence of embolic lesions. HEAD: Atraumatic. Normocephalic. No temporal wasting, or tenderness. EYES: [place] conjunctiva. No petechia or hemorrhage. Pupils equal, round and reactive to light. Extraocular movements full and intact. No scleral icterus. No injection or drainage. EARS, NOSE AND THROAT: Nose without bleeding or purulent nasal discharge. No sinus tenderness. Mucous membranes pink and moist. No oral lesions noted. Wears upper and lower dentures. NECK: Trachea midline. Supple and not tender, no meningeal signs CARDIOVASCULAR: Regular rate and rhythm. No murmurs, rubs or gallops heard RESPIRATORY: Clear to auscultation. Breath sounds equal bilaterally. No rales , wheezing or rhonchi ABDOMEN: Soft, non-tender, nondistended. Bowel sounds present and normoactive. No guarding. No rebound. No organomegaly. EXTREMITIES: No clubbing, cyanosis, or edema. No joint effusion, has good ROM. No calf tenderness. Well perfused and warm. NEUROLOGICAL: Awake and alert. Cranial nerves grossly intact. Motor grossly within normal limits. PSYCHIATRIC: Normal affect, calm and cooperative. LINE: No evidence of infection Assessment & Plan Remarks Severe sepsis due to C difficile colitis Shock likely due to hypovolemia/dehydration CKD, ?baseleine creatinine, likley worsened by hypovolemia and shock Prob with COPD, CXR clear no PNA Recommendation Only treat Cdiff at this point. Continue PO Vancomycin 125 mg. Probiotic Fluid resuscitation Follow C/S Monitor progress Will follow prn. If ready for DC over the weekend ok to transition to oral vanco 125 mg po for total of 14 days along with probiotic. Eugenie Grimm MD Jul 08, 2017 09:41
[2017-07-08] MEDS: VANCOMYCIN 125 MG/5 ML PO SCH ×3 (13:00→19:59)
[2017-07-08] MEDS ORDERED: VANCOMYCIN 500 MG VIAL (FOR ORAL USE ONLY) PO SCH (13:00)
[2017-07-08] MEDS: ATORVASTATIN 20 MG TAB PO SCH (19:59)
[2017-07-08] MEDS: CARVEDILOL 12.5 MG TAB PO SCH (21:00)
[2017-07-09] VITALS (13 sets, daily range): BP systolic 135–171; BP diastolic 71–89; PULSE 59–92; RESP 18–28; TEMP 97.8–98.5; O2SAT 92–95
[2017-07-09 05:17] LABS: AUTOMATED NEUTROPHIL # 7.1 TH/MM3 (1.8-7.7); BASOPHIL % 0.3 % (0.0-2.0); EOSINOPHIL # 0.1 TH/MM3 (0-0.4); EOSINOPHIL % 1.5 % (0.0-4.0); HEMATOCRIT 39.3 % (39.0-51.0); HEMOGLOBIN 13.3 GM/DL (13.0-17.0); LYMPH % 12.8 % (9.0-44.0); LYMPHOCYTE # 1.2 TH/MM3 (1.0-4.8); MEAN CELL VOLUME 90.3 FL (80.0-100.0); MEAN CORPUSCULAR HEMOGLOBIN 30.5 PG (27.0-34.0); MEAN CORPUSCULAR HGB CONC 33.7 % (32.0-36.0); MEAN PLATELET VOLUME 7.6 FL (7.0-11.0); MONO % 10.1 % (0.0-8.0); NEUT % 75.3 % (16.0-70.0); PLATELET COUNT 213 TH/MM3 (150-450); RED BLOOD COUNT 4.36 MIL/MM3 (4.50-5.90); WHITE BLOOD COUNT 9.4 TH/MM3 (4.0-11.0)
[2017-07-09] MEDS ORDERED: PHARMACY ORDERED LAB ONE (06:00)
[2017-07-09 06:09] LABS: BICARBONATE 23.8 MEQ/L (21.0-32.0); CALCIUM 7.8 MG/DL (8.5-10.1); CREATININE 1.03 MG/DL (0.60-1.30); RANDOM VANCOMYCIN 6.5 COMMENT
[2017-07-09] MEDS: HEPARIN SODIUM - SQ 10,000 UNITS/ML VIAL SQ SCH ×3 (06:17→20:05)
[2017-07-09] MEDS: CHLORHEXIDINE GLUCONATE 2 % 1 PACK (2 CLOTHS) TOP SCH ×2 (06:17→19:26)
[2017-07-09] MEDS: SODIUM CHLOR 0.9% 1000 ML INJ 1,000 ML IV SCH (06:17)
[2017-07-09] MEDS: LACTOBACILLUS ACIDOPHILUS TAB PO SCH ×3 (08:35→17:21)
[2017-07-09] MEDS: CARVEDILOL 12.5 MG TAB PO SCH ×2 (08:35→20:05)
[2017-07-09] MEDS: LISINOPRIL 20 MG TAB PO SCH (08:35)
[2017-07-09] MEDS: DOCUSATE SODIUM 50 MG/SENNA 8.6 MG TAB PO SCH ×2 (08:35→20:05)
[2017-07-09] MEDS: FAMOTIDINE 20 MG/2 ML VIAL IV PUSH SCH ×2 (08:35→20:04)
[2017-07-09] MEDS: VANCOMYCIN 125 MG/5 ML PO SCH ×2 (08:36→11:46)
[2017-07-09] MEDS: SODIUM CHLORIDE 0.9% FLUSH 10 ML FLUSH IV FLUSH SCH ×2 (08:36→20:06)
[2017-07-09] MEDS: VANCOMYCIN INJ 1,250 MG in SODIUM CHLOR 0.9% 250 ML INJ 250 ML IV SCH (12:02)
--- NOTE | 2017-07-09 16:33 | HHI.PR ---
Subjective Remarks pt says he is feeling better. no cp or sob. still bith loose BM. Objective Vital Signs Date Time Temp Pulse Resp B/P (MAP) Pulse Ox O2 Delivery O2 Flow Rate FiO2 07/09/17 14:00 76 07/09/17 12:00 98.4 63 28 135/75 (95) 94 07/09/17 12:00 63 07/09/17 11:16 92 Nasal Cannula 1.00 07/09/17 10:00 71 07/09/17 09:00 92 07/09/17 08:00 98.5 65 23 171/82 (111) 94 07/09/17 08:00 65 07/09/17 07:00 95 Nasal Cannula 2.00 07/09/17 06:00 67 07/09/17 04:00 59 07/09/17 04:00 98.0 60 23 143/71 (95) 93 07/09/17 02:00 76 07/09/17 00:00 76 07/09/17 00:00 97.8 71 26 154/75 (101) 93 07/08/17 22:00 66 07/08/17 20:00 98.0 68 21 163/80 (107) 94 07/08/17 20:00 95 Nasal Cannula 2.00 07/08/17 20:00 80 07/08/17 19:30 94 Nasal Cannula 1.00 07/08/17 18:00 81 07/08/17 17:00 61 I/O 07/08/17 07/08/17 07/08/17 07/09/17 07/09/17 07/09/17 07:00 15:00 23:00 07:00 15:00 23:00 Intake Total 240 ml 3565 ml 1396 ml 250 ml 280 ml Output Total 800 ml 1000 ml 1150 ml 1200 ml Balance -560 ml 2565 ml 246 ml 250 ml -920 ml Intake Oral 240 ml 480 ml 840 ml 280 ml IV Total 3085 ml 556 ml 250 ml Output Urine Total 800 ml 1000 ml 1150 ml 1200 ml # Bowel Movements 1 0 0 2 Result Diagram: 07/09/17 0455 07/09/17 0455 Objective Remarks GENERAL: sitting up in bed. nad. AAOx3 SKIN: Warm and dry. HEAD: Normocephalic. EYES: No scleral icterus. No injection or drainage. NECK: Supple, trachea midline. No JVD. CARDIOVASCULAR: Regular rate and rhythm without murmurs, gallops, or rubs. RESPIRATORY: Breath sounds equal bilaterally. No accessory muscle use. GASTROINTESTINAL: Abdomen soft, mild TTP no r/g MUSCULOSKELETAL: No cyanosis, or edema. BACK: Nontender without obvious deformity. No CVA tenderness. A/P Assessment and Plan 07/09 ; acc. htn, adjust meds. stop IVF C diff - cont treatment. shock resolved. abran resolved. 1) Resp Insuff. Appears much improved. DuoNeb's as needed. 2)C-diff colitis. With continued loose bowel movements. Continue vancomycin by mouth as per infectious disease. Appreciate assistance. 3)ABRAN.. Creatinine 4.3 on admission, now 1.03. Secondary to C. difficile and dehydration. Appears resolved. 4)Leukocytosis. 12.2 on admission..trending down 5)Tobacco use disorder. Cessation counseling provided. 6} accelerated hypertension. Systolic blood pressure up to 190s today. Coreg and lisinopril added. Decrease IV fluids. DVT GI prophylaxis - Teds SCDs - Subcutaneous heparin - Tremaine Mesa MD Jul 09, 2017 16:33
[2017-07-09] MEDS ORDERED: VANCOMYCIN 25 MG/ML SUSP 100 ML BOTTLE PO SCH (18:00)
[2017-07-09] MEDS ORDERED: SODIUM CHLOR 0.45% 1000 ML INJ 1,000 ML IV SCH (18:15)
[2017-07-09] MEDS: ATORVASTATIN 20 MG TAB PO SCH (20:05)
[2017-07-10] VITALS (10 sets, daily range): BP systolic 141–175; BP diastolic 69–88; PULSE 49–102; RESP 18–20; TEMP 97.7–98.2; O2SAT 92–95
[2017-07-10] MEDS: HEPARIN SODIUM - SQ 10,000 UNITS/ML VIAL SQ SCH ×3 (05:17→20:45)
[2017-07-10] MEDS: VANCOMYCIN INJ 1,250 MG in SODIUM CHLOR 0.9% 250 ML INJ 250 ML IV SCH ×2 (05:17→23:23)
[2017-07-10] MEDS: DOCUSATE SODIUM 50 MG/SENNA 8.6 MG TAB PO SCH ×2 (09:00→20:46)
[2017-07-10] MEDS: LISINOPRIL 20 MG TAB PO SCH (09:02)
[2017-07-10] MEDS: LACTOBACILLUS ACIDOPHILUS TAB PO SCH ×3 (09:02→18:00)
[2017-07-10] MEDS: FAMOTIDINE 20 MG/2 ML VIAL IV PUSH SCH ×2 (09:02→20:45)
[2017-07-10] MEDS: SODIUM CHLORIDE 0.9% FLUSH 10 ML FLUSH IV FLUSH SCH ×2 (09:03→20:45)
[2017-07-10] MEDS: CARVEDILOL 12.5 MG TAB PO SCH ×2 (09:03→20:45)
[2017-07-10 10:27] LABS: AUTOMATED NEUTROPHIL # 6.2 TH/MM3 (1.8-7.7); BASOPHIL % 0.3 % (0.0-2.0); EOSINOPHIL # 0.1 TH/MM3 (0-0.4); EOSINOPHIL % 1.3 % (0.0-4.0); HEMATOCRIT 42.6 % (39.0-51.0); HEMOGLOBIN 14.4 GM/DL (13.0-17.0); LYMPH % 12.9 % (9.0-44.0); LYMPHOCYTE # 1.1 TH/MM3 (1.0-4.8); MEAN CELL VOLUME 89.9 FL (80.0-100.0); MEAN CORPUSCULAR HEMOGLOBIN 30.4 PG (27.0-34.0); MEAN CORPUSCULAR HGB CONC 33.8 % (32.0-36.0); MEAN PLATELET VOLUME 7.6 FL (7.0-11.0); MONO % 10.1 % (0.0-8.0); MONOCYTE # 0.8 TH/MM3 (0-0.9); NEUT % 75.4 % (16.0-70.0); PLATELET COUNT 236 TH/MM3 (150-450); RED BLOOD COUNT 4.74 MIL/MM3 (4.50-5.90); RED CELL DISTRIBUTION WIDTH 12.9 % (11.6-17.2); WHITE BLOOD COUNT 8.3 TH/MM3 (4.0-11.0)
[2017-07-10 11:00] LABS: ALBUMIN 2.5 GM/DL (3.4-5.0); BICARBONATE 30.3 MEQ/L (21.0-32.0); CALCIUM 8.3 MG/DL (8.5-10.1); CREATININE 1.04 MG/DL (0.60-1.30); MAGNESIUM 1.8 MG/DL (1.5-2.5)
[2017-07-10 11:01] LABS: PHOSPHORUS 1.7 MG/DL (2.5-4.9)
--- NOTE | 2017-07-10 16:38 | HHI.PR ---
Subjective Remarks Patient denies abdominal pain, diarrhea is improving. Afebrile Objective Vitals Vital Signs Date Time Temp Pulse Resp B/P (MAP) Pulse Ox O2 Delivery O2 Flow Rate FiO2 07/10/17 12:00 97.7 78 20 141/69 (93) 93 07/10/17 08:00 71 07/10/17 08:00 Room Air 07/10/17 08:00 98.0 75 20 175/87 (116) 93 07/10/17 04:30 95 Nasal Cannula 2.00 07/10/17 04:00 98.2 102 20 150/71 (97) 92 07/10/17 03:57 49 07/10/17 00:23 55 07/10/17 00:00 98.0 71 18 166/77 (106) 95 07/09/17 20:06 83 07/09/17 20:03 95 Nasal Cannula 2.00 07/09/17 20:00 98.4 70 18 160/80 (106) 94 I/O 07/09/17 07/09/17 07/09/17 07/10/17 07/10/17 07/10/17 07:00 15:00 23:00 07:00 15:00 23:00 Intake Total 1396 ml 250 ml 280 ml 700 ml Output Total 1150 ml 1200 ml 175 ml Balance 246 ml 250 ml -920 ml 525 ml Intake Oral 840 ml 280 ml IV Total 556 ml 250 ml 700 ml Output Urine Total 1150 ml 1200 ml 175 ml # Bowel Movements 0 2 Result Diagram: 07/10/17 0910 07/10/17 0920 Imaging Last Impressions Renal Ultrasound 07/07/17 0000 Signed Impressions: Service Date/Time: Friday, July 07, 2017 09:01 - CONCLUSION: Bilateral renal cysts. No evidence of hydronephrosis. Junaid Gamble MD Chest X-Ray 07/06/17 2311 Signed Impressions: Service Date/Time: Thursday, July 06, 2017 23:25 - CONCLUSION: No acute cardiopulmonary abnormality is identified. There is mild atelectasis at the left lung base. Junaid Davis MD Objective Remarks AAOx3 NAD Abdomen soft, nt, nd S1S2 RRR clear lungs Medications and IVs Current Medications Medications (Trade) Dose Ordered Sig/Zachary Route Start Time Stop Time Status Last Admin (Brethine Inj) 1 mg UNSCH PRN SQ 07/07/17 00:45 (Lipitor) 20 mg HS PO 07/07/17 21:00 07/09/17 20:05 (Tylenol) 650 mg Q6H PRN PO 07/07/17 01:45 (Zofran Inj) 4 mg Q6H PRN IV PUSH 07/07/17 01:45 (Duoneb Neb) 1 ampule Q2HR NEB PRN INH 07/07/17 01:45 (Heparin Inj) 5,000 units Q8H SQ 07/07/17 04:00 07/10/17 12:10 Miscellaneous Information 1 Q361D XX 07/07/17 01:45 07/07/17 01:45 (Chlorhexidine 2% Cloth) 3 pack Taper DAILY@04 TOP 07/07/17 04:00 07/03/18 03:59 07/09/17 06:17 (Chlorhexidine 2% Cloth) 3 pack UNSCH PRN TOP 07/07/17 01:45 (Bhakti-Colace) 1 tab BID PO 07/07/17 09:00 07/07/17 08:29 (Milk Of Magnesia Liq) 30 ml Q12H PRN PO 07/07/17 01:45 (Senokot) 17.2 mg Q12H PRN PO 07/07/17 01:45 (Dulcolax Supp) 10 mg DAILY PRN RECTAL 07/07/17 01:45 (Lactulose Liq) 30 ml DAILY PRN PO 07/07/17 01:45 (NS Flush) 2 ml UNSCH PRN IV FLUSH 07/07/17 01:45 07/07/17 20:41 (NS Flush) 2 ml BID IV FLUSH 07/07/17 09:00 07/10/17 09:03 Pharmacy Profile Note 0 ml @ 0 mls/hr UNSCH OTHER 07/07/17 01:45 (Lactinex) 1 tab TID PO 07/07/17 13:00 07/10/17 12:10 (Pepcid Inj) 10 mg Q12HR IV PUSH 07/07/17 21:00 07/10/17 09:02 (Coreg) 12.5 mg BID PO 07/08/17 21:00 07/10/17 09:03 (Prinivil) 20 mg DAILY PO 07/09/17 09:00 07/10/17 09:02 Vancomycin HCl 1250 mg/Sodium Chloride 262.5 ml @ 250 mls/hr Q18H IV 07/09/17 12:00 07/10/17 05:17 Miscellaneous Information SPECIFIC LAB TO BE DRAWN:VANCO TROUGH DATE TO... ONCE ONCE .XX 07/11/17 17:45 07/11/17 17:46 Sodium Chloride 1,000 ml @ 42 mls/hr [id number] IV 07/09/17 18:15 07/09/17 18:37 (Catapres) 0.1 mg Q6H PRN PO 07/10/17 01:30 A/P Problem List: (1) C. difficile colitis ICD Code: A04.72 - Enterocolitis due to Clostridium difficile, not specified as recurrent; R65.21 - Severe sepsis with septic shock Status: Acute Plan: Continue PO Vancomycin - diarrhea is improving. Continue Lactobacillus acidophilus. If better DC in am (2) Septic shock ICD Code: A41.9 - Sepsis, unspecified organism; R65.21 - Severe sepsis with septic shock Status: Resolved Plan: Due to C diff colitis. Resolved. (3) Acute kidney injury ICD Code: N17.9 - Acute kidney failure, unspecified Status: Resolved Plan: Resolved after IV fluid administration. Renal us - no hydronephrosis. (4) HTN (hypertension) ICD Code: I10 - Essential (primary) hypertension Plan: BP severely uncontrolled DCM. However much improved at this time. Continue lisinopril 20 mg p.o. daily, increase Coreg dose to 25 mg p.o. twice daily. (5) Hyperlipidemia ICD Code: E78.5 - Hyperlipidemia, unspecified Plan: Continue statin. Assessment and Plan DVT prophylaxis: SCDs, heparin subcutaneous. Discharge Planning Possible discharge in a.m., pending improvement of diarrhea. Problem Qualifiers (1) HTN (hypertension): Qualified Codes: I10 - Essential (primary) hypertension (2) Hyperlipidemia: Qualified Codes: E78.5 - Hyperlipidemia, unspecified Kale Mesa MD Jul 10, 2017 16:38
[2017-07-10] MEDS ORDERED: POTASSIUM CHLORIDE 10 MEQ CONTROLLED RELEASE TAB PO ONE (17:30)
[2017-07-10] MEDS: cloNIDine HCL 0.1 MG TAB PO PRN (17:40)
[2017-07-10] MEDS: ATORVASTATIN 20 MG TAB PO SCH (20:45)
[2017-07-11] VITALS: BP 171/92; PULSE 59; PULSE 66; RESP 16; TEMP 98.2; O2SAT 94
[2017-07-11 04:00] VITALS: BP 171/93; PULSE 64; PULSE 76; RESP 18; TEMP 98.1; O2SAT 93
[2017-07-11] MEDS: CHLORHEXIDINE GLUCONATE 2 % 1 PACK (2 CLOTHS) TOP SCH (04:00)
[2017-07-11] MEDS: HEPARIN SODIUM - SQ 10,000 UNITS/ML VIAL SQ SCH ×2 (04:00→12:46)
[2017-07-11] MEDS: cloNIDine HCL 0.1 MG TAB PO PRN (04:44)
[2017-07-11 08:00] VITALS: BP 163/82; PULSE 65; PULSE 72; RESP 18; TEMP 98.3; O2SAT 95
[2017-07-11] MEDS: CARVEDILOL 12.5 MG TAB PO SCH (08:53)
[2017-07-11] MEDS: LISINOPRIL 20 MG TAB PO SCH (08:54)
[2017-07-11] MEDS: SODIUM CHLORIDE 0.9% FLUSH 10 ML FLUSH IV FLUSH SCH (08:54)
[2017-07-11] MEDS: FAMOTIDINE 20 MG/2 ML VIAL IV PUSH SCH (08:54)
[2017-07-11] MEDS: LACTOBACILLUS ACIDOPHILUS TAB PO SCH ×2 (08:55→12:46)
[2017-07-11] MEDS: DOCUSATE SODIUM 50 MG/SENNA 8.6 MG TAB PO SCH (08:55)
[2017-07-11 12:00] VITALS: BP 140/72; PULSE 65; PULSE 69; RESP 18; TEMP 98.2; O2SAT 94
[2017-07-11] MEDS ORDERED: LISI-515 PO (14:40)
[2017-07-11] MEDS ORDERED: CARV12.5 PO (14:40)
[2017-07-11] MEDS ORDERED: LACTTAB8 PO (14:40)
[2017-07-11] MEDS ORDERED: VANC125C3 PO (14:40)
--- NOTE | 2017-07-11 14:41 | HHI.DCPOC ---
Discharge Care Plan Diagnosis: (1) C. difficile colitis (2) Septic shock (3) Hyperlipidemia (4) HTN (hypertension) (5) Acute kidney injury Goals to Promote Your Health * To prevent worsening of your condition and complications * To maintain your health at the optimal level Directions to Meet Your Goals Take your medications as prescribed Follow your dietary instruction Follow activity as directed Keep your appointments as scheduled Take your immunizations and boosters as scheduled If your symptoms worsen call your PCP, if no PCP go to Urgent Care Center or Emergency Room Smoking is Dangerous to Your Health. Avoid second hand smoke Call the 24-hour hour crisis hotline for domestic abuse at Kale Mesa MD Jul 11, 2017 14:41
--- NOTE | 2017-07-11 14:53 | HHI.DS ---
Discharge Summary Admission Date Jul 07, 2017 at 01:19 Discharge Date: Jul 11, 2017 Admitting Diagnosis septic shock. C. difficile colitis. Acute kidney injury. (1) C. difficile colitis ICD Code: A04.72 - Enterocolitis due to Clostridium difficile, not specified as recurrent; R65.21 - Severe sepsis with septic shock Diagnosis: Principal Status: Acute (2) Septic shock ICD Code: A41.9 - Sepsis, unspecified organism; R65.21 - Severe sepsis with septic shock Diagnosis: Principal Status: Resolved (3) Acute kidney injury ICD Code: N17.9 - Acute kidney failure, unspecified Diagnosis: Principal Status: Resolved (4) HTN (hypertension) ICD Code: I10 - Essential (primary) hypertension Diagnosis: Principal (5) Hyperlipidemia ICD Code: E78.5 - Hyperlipidemia, unspecified Diagnosis: Principal Procedures none Brief History - From Admission 77-year-old male presents complaining of generalized malaise and weakness. Patient started having coughing congestion about 5 days ago. Patient was given cefuroxime 500 mg by his physician. Patient states that he started having diarrhea prior to taking the antibiotic and has had persistent diarrhea subsequently. Patient took [id number] Imodium with some relief of the diarrhea but he remained having poor appetite for the past 5 days. He denies abdominal pain. EMS was called this evening and they found patient hypotensive with a blood pressure 60/40. Patient was given a normal saline solution 1.5 L on with the ED. his blood pressure in the emergency department was improved however declined again, requiring centerline placement by ED attending and an initiation off vasopressors treatment. CBC/BMP: 07/10/17 0910 07/10/17 0920 Significant Findings Laboratory Tests Test 07/09/17 04:55 07/10/17 09:10 07/10/17 09:20 Red Blood Count 4.36 MIL/MM3 (4.50-5.90) Neutrophils (%) (Auto) 75.3 % (16.0-70.0) 75.4 % (16.0-70.0) Monocytes (%) (Auto) 10.1 % (0.0-8.0) 10.1 % (0.0-8.0) Monocytes # (Auto) 1.0 TH/MM3 (0-0.9) Calcium Level 7.8 MG/DL (8.5-10.1) 8.3 MG/DL (8.5-10.1) Chloride Level 110 MEQ/L (98-107) Estimat Glomerular Filtration Rate 70 ML/MIN (>89) 69 ML/MIN (>89) Albumin 2.5 GM/DL (3.4-5.0) Phosphorus Level 1.7 MG/DL (2.5-4.9) Imaging Last Impressions Renal Ultrasound 07/07/17 0000 Signed Impressions: Service Date/Time: Friday, July 07, 2017 09:01 - CONCLUSION: Bilateral renal cysts. No evidence of hydronephrosis. Junaid Gamble MD Chest X-Ray 07/06/17 2311 Signed Impressions: Service Date/Time: Thursday, July 06, 2017 23:25 - CONCLUSION: No acute cardiopulmonary abnormality is identified. There is mild atelectasis at the left lung base. Junaid Davis MD PE at Discharge AAOx3 NAD Abdomen soft, nt, nd S1S2 RRR clear lungs Pt update on day of discharge The patient states that diarrhea has resolved. Denies abdominal pain, nausea vomiting. The patient is eating well and appetite is good. Patient is afebrile. Blood pressure was elevated earlier today, however now is under control.Discussed with case resolution specialist who states patient refuses home health care , so patient will be discharged home. Pt Condition on Discharge: Stable Discharge Disposition: Disch w/ Home Health Serv Discharge Time: > 30 minutes Discharge Instructions DIET: Follow Instructions for: Heart Healthy Diet Activities you can perform: Regular-No Restrictions, See Additionl Instruction Activities to Avoid: Prolonged Standing, Strenuous Activity Other Activity Instructions: As per PT instructions. Follow up Referrals: PCP Follow-up - 2 Weeks New Medications: Lactobacillus Acidophilus (Lactobacillus Acidophilus) 1 Billion Cell Tab 2 TAB PO TIDAC for Nutritional Supplement, #60 TAB 0 Refills Vancomycin (Vancomycin) 125 Mg Cap 125 MG PO QID for Infection, #56 CAP 0 Refills Carvedilol (Coreg) 12.5 Mg Tab 25 MG PO BID for Blood Pressure Management, #60 TAB Continued Medications: Atorvastatin (Atorvastatin) 20 Mg Tab 20 MG PO HS for Cholesterol Management, #30 TAB 0 Refills Lisinopril (Lisinopril) 20 Mg Tab 20 MG PO DAILY, #30 TAB 0 Refills (This prescription has been renewed) Discontinued Medications: Carvedilol (Carvedilol) 12.5 Mg Tab 12.5 MG PO BID, #60 TAB 0 Refills Cefuroxime (Cefuroxime) 500 Mg Tab 500 MG PO BID for Infection, TAB 0 Refills Kale Mesa MD Jul 11, 2017 14:53
--- NOTE | 2017-07-11 14:54 | HHI.FF ---
Face to Face Verification Diagnosis: (1) Acute kidney injury (2) C. difficile colitis (3) HTN (hypertension) (4) Hyperlipidemia (5) Septic shock Physical Therapy Order: Improve ambulation, Strength and gait training Home Health Nursing Order: Nursing assessment with vital signs I have seen patient Levi Arriaga on 07/11/17. My clinical findings support the need for the requested home health care services because: Need for psychosocial assistance High risk of falls I certify that my clinical findings support that this patient is homebound because: Unsafe to leave home unassisted Need for psychosocial assistance Unable to use public transportation Kale Mesa MD Jul 11, 2017 14:53
[2017-07-11] MEDS ORDERED: PHARMACY ORDERED LAB ONE (17:45)
== END 2017-07-11 16:38 | disposition home or self-care (01) | DRG 871 ==
LOC: NEPC 23:08 → NEDA 07-07 01:19 → HIME 07-07 04:40 → N04A 07-09 15:04
PROVIDERS: ADMIT Hospitalist; ATTEND Hospitalist
PROC: 06HY33Z Insertion of Infusion Device into Lower Vein, Percutaneous Approach (ICD-10-PCS; principal; 2017-07-07)
DX: A41.4 Sepsis due to anaerobes (principal); R57.1 Hypovolemic shock; N17.9 Acute kidney failure, unspecified; A04.72 Enterocolitis due to Clostridium difficile, not specified as recurrent; N18.9 Chronic kidney disease, unspecified; I12.9 Hypertensive chronic kidney disease with stage 1 through stage 4 chronic kidney disease, or unspecified chronic kidney disease; F17.210 Nicotine dependence, cigarettes, uncomplicated; E78.5 Hyperlipidemia, unspecified; R65.20 Severe sepsis without septic shock; J44.9 Chronic obstructive pulmonary disease, unspecified; Z23 Encounter for immunization
CPT/HCPCS: 36556; 71045; 76775; 80048; 80053; 80069; 80202; 82550; 83605; 83735; 83880; 84100; 84443; 84484; 85025; 85610; 85730; 87040; 87493; 87506; 87641; 87804; 90686; 93005; 96360; J1644; J2543; J2997; J3370; J7030; J7050; Q2038